=== PATIENT | female | born 1980 | race Caucasian/White ===

== ENCOUNTER 2019-06-06 09:03 | Emergency (ER) | payer OTHER ==
[2019-06-06 09:11] VITALS: TEMP 98.9
[2019-06-06] MEDS ORDERED: DIPH,PERTUS(ACELL)TETVAC-LF 0.5 ML VIAL IM ONE (09:24)
[2019-06-06] MEDS: LIDOCAINE 1% INJ 10MG/ML (20 ML MDV) SQ STA ×2 (09:30→09:35)
[2019-06-06] MEDS ORDERED: ceFAZolin 1,000 MG VIAL (IM USE) IM STA (09:30)
[2019-06-06] MEDS ORDERED: CEPHALEXIN 500MG STARTER PACK 4 CAP BTL PO STA (09:30)
--- NOTE | 2019-06-06 11:05 | ED ---
General Adult HPI - General Chief complaint: Wound/Laceration Stated complaint: Thumb Lac Time Seen by Provider: 06/06/19 09:22 Source: patient, RN notes reviewed, old records reviewed Mode of arrival: ambulatory Limitations: no limitations - History of Present Illness Initial comments: 38-year-old female patient presents to ED with avulsion laceration to pad of right thumb. Patient reports that she was vigorously using a broom to sweep when the plastic Of the broom came off causing patient to cut herself with the metal edge. Patient reports that these metal did not break. Patient suffered a avulsion laceration to her right thumb. Patient reports that skin entirely. Patient does not know date of last tetanus. Patient denies other complaints. Systemic: Pt denies fatigue, fever/chills, rash. Pt denies weakness, night sweats, weight loss. Neuro: Pt denies headache, visual disturbances, syncope or pre-syncope. HEENT: Pt denies ocular discharge or irritation, otalgia, rhinorrhea, pharyngitis or notable lymphadenopathy. Cardiopulmonary: Pt denies chest pain, SOB, heart palpitations, dyspnea on exertion. Abdominal/GI: Pt denies abdominal pain, n/v/d. : Pt denies dysuria, burning w/ urination, frequency/urgency. Denies new onset urinary or bowel incontinence. MSK: Pt denies myalgia, loss of strength or function in extremities. Neuro: Pt denies new onset weakness, paresthesias. - Related Data Previous Rx's Medication Instructions Recorded Cephalexin [Keflex] 500 mg PO Q6HR 3 Days #12 cap 06/06/19 Allergies Allergy/AdvReac Type Severity Reaction Status Date / Time No Known Allergies Allergy Verified 06/06/19 09:08 Review of Systems ROS Statement: Those systems with pertinent positive or pertinent negative responses have been documented in the HPI. ROS Other: All systems not noted in ROS Statement are negative. Past Medical History Past Medical History: Diabetes Mellitus History of Any Multi-Drug Resistant Organisms: None Reported Past Surgical History: Orthopedic Surgery Additional Past Surgical History / Comment(s): L leg Past Psychological History: No Psychological Hx Reported Smoking Status: Current every day smoker Past Alcohol Use History: Rare Past Drug Use History: Marijuana General Exam - General Exam Comments Initial Comments: Constitutional: NAD, AOX3, Pt has pleasant affect. HEENT: NC/AT, trachea midline, neck supple, no lymphadenopathy. Posterior pharynx non erythematous, without exudates. External ears appear normal, without discharge. Mucous membranes moist. Eyes PERRLA, EOM intact. There is no scleral icterus. No pallor noted. Cardiopulmonary: RRR, no murmurs, rubs or gallops, no JVD noted. Lungs CTAB in anterior and posterior fermin. No peripheral edema. Abdominal exam: Abdomen soft and non-distended. Abdomen non-tender to palpation in all 4 quadrants. Bowel sounds active in LLQ. No hepatosplenomegaly. No ecchymosis Neuro: CN II-XII grossly intact. No nuchal rigidity. No raccon eyes, no parks sign, no hemotympanum. No cervical spinal tenderness. MSK: 2 cm avulsion laceration to pad of right thumb. No foreign body, bony or ligamentous involvement. Full active range of motion of digit. Sensation intact, cable refill less than 2 seconds. Vigorusly irrigated with 1L NS. and bandaged. No posterior calf tenderness bilaterally, homans sign negative bilaterally. Posterior tibialis and radial pulse +2 bilaterally. Sensation intact in upper and lower extremities. Full active ROM in upper and lower extremities, 5/5 stregnth. Limitations: no limitations Course Vital Signs 06/06/19 06/06/19 09:08 11:18 Temperature 98.9 F Pulse Rate 122 H 86 Respiratory 18 16 Rate Blood Pressure 134/69 136/86 O2 Sat by Pulse 99 99 Oximetry Medical Decision Making - Medical Decision Making 38-year-old female patient presents to ED with avulsion laceration to pad of right thumb. Patient reports that she was vigorously using a broom to sweep when the plastic Of the broom came off causing patient to cut herself with the metal edge. Patient reports that these metal did not break. Patient suffered a avulsion laceration to her right thumb. Patient reports that skin entirely. Patient does not know date of last tetanus. Patient denies other complaints. Pt VSS, afebrile. PHysical exam displayed: 2 cm avulsion laceration to pad of right thumb. No foreign body, bony or ligamentous involvement. Full active range of motion of digit. Sensation intact, cable refill less than 2 seconds. Vigorusly irrigated with 1L NS. and bandaged. Patient administered 1 g Ancef in ED. Patient discharged with Keflex. Tetanus updated. Patient monitor for signs of infection, return precautions discussed. Patient to follow up with primary care provider in 1-2 days. Patient return if condition worsens. Case discussed with Dr. Araujo. Disposition Clinical Impression: Laceration Disposition: HOME SELF-CARE Condition: Stable Instructions (If sedation given, give patient instructions): Laceration (ED) Additional Instructions: Patient to adhere to previously discussed treatment plan and will take medication(s) as directed. Patient to follow up with PCP in 1-2 days. Patient to return to ED if symptoms do not improve. Please monitor for signs and symptoms of infection including: redness, warmth, drainage, discharge. Please return to ED if these signs or symptoms occur, new signs or symptoms develop or if condition worsens in anyway. Prescriptions: Cephalexin [Keflex] 500 mg PO Q6HR 3 Days #12 cap Is patient prescribed a controlled substance at d/c from ED?: No Referrals: None,Stated [Primary Care Provider] - 1-2 days
[2019-06-06 11:19] VITALS: BP 136/86; PULSE 86; RESP 16
[2019-06-06] MEDS ORDERED: GELATIN SPONGE,ABSORB (LARGE) 1 EACH SPONGE TOPICAL STA (12:56)
== END 2019-06-06 11:19 | disposition home or self-care (01) ==
LOC: EC 09:03
DX: S61.011A Laceration without foreign body of right thumb without damage to nail, initial encounter (principal); Z23 Encounter for immunization; F17.200 Nicotine dependence, unspecified, uncomplicated; W26.8XXA Contact with other sharp object(s), not elsewhere classified, initial encounter; Y92.009 Unspecified place in unspecified non-institutional (private) residence as the place of occurrence of the external cause
CPT/HCPCS: 90715; 99283; 90471; 96372; J0690

== ENCOUNTER 2020-11-24 19:16 | Emergency (ER) | payer OTHER ==
[2020-11-24 19:23] VITALS: RESP 20; TEMP 98
[2020-11-24] MEDS ORDERED: KETOROLAC 15 MG/ML 1 ML VIAL IVP STA (19:35)
[2020-11-24] MEDS ORDERED: SODIUM CHLORIDE 0.9% 500 ML 500 ML IV STA (19:35)
--- NOTE | 2020-11-24 19:37 | ED ---
General Adult HPI - General Chief complaint: Abdominal Pain Stated complaint: sharp in r side Time Seen by Provider: 11/24/20 19:28 Source: patient Mode of arrival: ambulatory Limitations: no limitations - History of Present Illness Initial comments: 40-year-old female patient presents to the emergency department today for evaluation of right upper back pain below her right shoulder blade. She states the pain isn't present for the last 2 weeks but has worsened over the last 3 days. States whenever she moves around it hurts worse. Denies any chest pain or shortness of breath. Denies abdominal pain, nausea, vomiting, constipation, diarrhea. She denies any tenderness over the area to palpation. Denies fever or chills. States she has had some mild cough and congestion. Denies any known injury. Patient denies any recent rash, diarrhea, constipation, back pain, numbness, tingling, dizziness, weakness, hematuria, dysuria, urinary urgency, ur inary frequency, headache, visual changes, or any other complaints. - Related Data Previous Rx's Medication Instructions Recorded Cyclobenzaprine [Flexeril] 10 mg PO TID #20 tab 11/24/20 Lidocaine 5% Patch [Lidoderm] 1 patch TOPICAL DAILY #30 patch 11/24/20 RX: Ibuprofen [Motrin] 600 mg PO Q8HR PRN #30 tab 11/24/20 Allergies Allergy/AdvReac Type Severity Reaction Status Date / Time No Known Allergies Allergy Verified 11/24/20 21:26 Review of Systems ROS Statement: Those systems with pertinent positive or pertinent negative responses have been documented in the HPI. ROS Other: All systems not noted in ROS Statement are negative. Past Medical History Past Medical History: Diabetes Mellitus History of Any Multi-Drug Resistant Organisms: None Reported Past Surgical History: Orthopedic Surgery Additional Past Surgical History / Comment(s): L leg Past Psychological History: No Psychological Hx Reported Smoking Status: Current every day smoker Past Alcohol Use History: Rare Past Drug Use History: Marijuana General Exam Limitations: no limitations General appearance: alert, in no apparent distress, other (This is a well- developed, well-nourished adult female patient in no acute distress. Vital signs upon presentation are temperature 98.0F, pulse 87, respirations 20, blood pressure 135/76, pulse ox 99% on room air.) Eye exam: Present: normal appearance, PERRL, EOMI. Absent: scleral icterus, conjunctival injection, periorbital swelling ENT exam: Present: normal exam, normal oropharynx, mucous membranes moist Respiratory exam: Present: normal lung sounds bilaterally. Absent: respiratory distress, wheezes, rales, rhonchi, stridor Cardiovascular Exam: Present: regular rate, normal rhythm, normal heart sounds. Absent: systolic murmur, diastolic murmur, rubs, gallop, clicks GI/Abdominal exam: Present: soft, normal bowel sounds. Absent: distended, tenderness, guarding, rebound, rigid Back exam: Present: normal inspection. Absent: tenderness, CVA tenderness (R), CVA tenderness (L), paraspinal tenderness, vertebral tenderness Neurological exam: Present: alert, oriented X3, CN II-XII intact Psychiatric exam: Present: normal affect, normal mood Skin exam: Present: warm, dry, intact, normal color. Absent: rash Course Vital Signs 11/24/20 11/24/20 19:20 21:50 Temperature 98.0 F Pulse Rate 87 70 Respiratory 20 20 Rate Blood Pressure 135/76 134/86 O2 Sat by Pulse 99 98 Oximetry Medical Decision Making - Medical Decision Making 40-year-old female patient percents to the emergency department today for evaluation of pain beneath the right shoulder blade. Physical examination revealed no tenderness or skin changes. Lungs are clear to auscultation. Abdomen soft and nontender. Labs reviewed and are unremarkable. D-dimer negative. Chest x-ray was negative. Urinalysis negative. She is afebrile, vital signs. Given increased pain with movement it is likely this could be musculoskeletal in nature possibly spasm. We will discharge him with Lidoderm patch, muscle relaxer, anti-inflammatory. She is instructed to follow-up with her primary care physician for recheck in 1-2 days. Return parameters were discussed in detail. She verbalizes understanding and agrees with this plan. - Lab Data Result diagrams: 11/24/20 19:38 11/24/20 19:38 Lab Results 11/24/20 11/24/20 11/24/20 Range/Units 19:38 19:38 19:38 WBC 7.1 (3.8-10.6) k/uL RBC 5.06 (3.80-5.40) m/uL Hgb 15.9 (11.4-16.0) gm/dL Hct 46.5 H (34.0-46.0) % MCV 91.9 (80.0-100.0) fL MCH 31.4 (25.0-35.0) pg MCHC 34.2 (31.0-37.0) g/dL RDW 12.5 (11.5-15.5) % Plt Count 170 (150-450) k/uL MPV 8.0 Neutrophils % 64 % Lymphocytes % 28 % Monocytes % 4 % Eosinophils % 2 % Basophils % 1 % Neutrophils # 4.5 (1.3-7.7) k/uL Lymphocytes # 2.0 (1.0-4.8) k/uL Monocytes # 0.3 (0-1.0) k/uL Eosinophils # 0.2 (0-0.7) k/uL Basophils # 0.1 (0-0.2) k/uL D-Dimer 0.38 (<0.60) mg/L FEU Sodium (137-145) mmol/L Potassium (3.5-5.1) mmol/L Chloride (98-107) mmol/L Carbon Dioxide (22-30) mmol/L Anion Gap mmol/L BUN (7-17) mg/dL Creatinine (0.52-1.04) mg/dL Est GFR (CKD-EPI)AfAm (>60 ml/min/1.73 sqM) Est GFR (CKD-EPI)NonAf (>60 ml/min/1.73 sqM) Glucose (74-99) mg/dL Calcium (8.4-10.2) mg/dL Total Bilirubin (0.2-1.3) mg/dL AST (14-36) U/L ALT (4-34) U/L Alkaline Phosphatase (38-126) U/L Total Protein (6.3-8.2) g/dL Albumin (3.5-5.0) g/dL Lipase (23-300) U/L Urine Color Light Yellow Urine Appearance Clear (Clear) Urine pH 5.5 (5.0-8.0) Ur Specific [place] 1.032 (1.001-1.035) Urine Protein Negative (Negative) Urine Glucose (UA) 4+ H (Negative) Urine Ketones 1+ H (Negative) Urine Blood Moderate H (Negative) Urine Nitrite Negative (Negative) Urine Bilirubin Negative (Negative) Urine Urobilinogen <2.0 (<2.0) mg/dL Ur Leukocyte Esterase Negative (Negative) Urine RBC 1 (0-5) /hpf Urine WBC 1 (0-5) /hpf Ur Squamous Epith Cells 1 (0-4) /hpf Urine Mucus Rare H (None) /hpf Urine HCG, Qual (Not Detectd) 11/24/20 11/24/20 Range/Units 19:38 19:38 WBC (3.8-10.6) k/uL RBC (3.80-5.40) m/uL Hgb (11.4-16.0) gm/dL Hct (34.0-46.0) % MCV (80.0-100.0) fL MCH (25.0-35.0) pg MCHC (31.0-37.0) g/dL RDW (11.5-15.5) % Plt Count (150-450) k/uL MPV Neutrophils % % Lymphocytes % % Monocytes % % Eosinophils % % Basophils % % Neutrophils # (1.3-7.7) k/uL Lymphocytes # (1.0-4.8) k/uL Monocytes # (0-1.0) k/uL Eosinophils # (0-0.7) k/uL Basophils # (0-0.2) k/uL D-Dimer (<0.60) mg/L FEU Sodium 136 L (137-145) mmol/L Potassium 4.7 (3.5-5.1) mmol/L Chloride 103 (98-107) mmol/L Carbon Dioxide 25 (22-30) mmol/L Anion Gap 8 mmol/L BUN 15 (7-17) mg/dL Creatinine 0.54 (0.52-1.04) mg/dL Est GFR (CKD-EPI)AfAm >90 (>60 ml/min/1.73 sqM) Est GFR (CKD-EPI)NonAf >90 (>60 ml/min/1.73 sqM) Glucose 348 H (74-99) mg/dL Calcium 9.4 (8.4-10.2) mg/dL Total Bilirubin 0.5 (0.2-1.3) mg/dL AST 24 (14-36) U/L ALT 24 (4-34) U/L Alkaline Phosphatase 133 H (38-126) U/L Total Protein 7.7 (6.3-8.2) g/dL Albumin 4.4 (3.5-5.0) g/dL Lipase 111 (23-300) U/L Urine Color Urine Appearance (Clear) Urine pH (5.0-8.0) Ur Specific [place] (1.001-1.035) Urine Protein (Negative) Urine Glucose (UA) (Negative) Urine Ketones (Negative) Urine Blood (Negative) Urine Nitrite (Negative) Urine Bilirubin (Negative) Urine Urobilinogen (<2.0) mg/dL Ur Leukocyte Esterase (Negative) Urine RBC (0-5) /hpf Urine WBC (0-5) /hpf Ur Squamous Epith Cells (0-4) /hpf Urine Mucus (None) /hpf Urine HCG, Qual Not Detected (Not Detectd) - Radiology Data Radiology results: report reviewed, image reviewed Two-view x-ray of the chest is obtained. Report was reviewed in its entirety. Impression by Dr. Dai Shirley shows no definite acute radiographic process. Disposition Clinical Impression: Back pain Disposition: HOME SELF-CARE Condition: Good Instructions (If sedation given, give patient instructions): Muscle Strain (ED), Back Pain (ED) Additional Instructions: Medications as directed. Follow-up with the primary care physician for recheck in 1-2 days. Return to the emergency department for any new, worsening, or concerning symptoms Prescriptions: Cyclobenzaprine [Flexeril] 10 mg PO TID #20 tab Lidocaine 5% Patch [Lidoderm] 1 patch TOPICAL DAILY #30 patch RX: Ibuprofen [Motrin] 600 mg PO Q8HR PRN #30 tab PRN Reason: Pain Is patient prescribed a controlled substance at d/c from ED?: No Referrals: None,Stated [Primary Care Provider] - 1-2 days Time of Disposition: 21:23
[2020-11-24 20:17] LABS: Basophils # (A) 0.1 k/uL (0-0.2); Basophils % (A) 1 %; Eosinophils # (A) 0.2 k/uL (0-0.7); Eosinophils % (A) 2 %; HCT 46.5 % (34.0-46.0); HGB 15.9 gm/dL (11.4-16.0); Lymphocytes % (A) 28 %; MCH 31.4 pg (25.0-35.0); MCHC 34.2 g/dL (31.0-37.0); MCV 91.9 fL (80.0-100.0); Monocytes # (A) 0.3 k/uL (0-1.0); Monocytes % (A) 4 %; Neutrophils # (A) 4.5 k/uL (1.3-7.7); Neutrophils % (A) 64 %; Platelet Count 170 k/uL (150-450); RBC 5.06 m/uL (3.80-5.40); RDW 12.5 % (11.5-15.5); WBC 7.1 k/uL (3.8-10.6)
[2020-11-24 20:23] LABS: Appearance,Urine Clear (Clear); Bilirubin,Urine Negative (Negative); Blood,Urine Moderate (Negative); Color,Urine Light Yellow; Glucose,Urine (UA) 4+ (Negative); Ketones,Urine 1+ (Negative); Leukocyte Esterase,Urine Negative (Negative); Mucus,Urine Rare /hpf; Nitrite,Urine Negative (Negative); PH, Urine 5.5 (5.0-8.0); Protein,Urine Negative (Negative); RBC,Urine 1 /hpf (0-5); Specific Gravity,Urine 1.032 (1.001-1.035); Squamous Epithelial Cell,Urine 1 /hpf (0-4); Urobilinogen,Urine <2.0 mg/dL (<2.0); WBC,Urine 1 /hpf (0-5)
[2020-11-24 20:26] LABS: ALT 24 U/L (4-34); AST 24 U/L (14-36); African American GFR (CKD) >90 (>60 ml/min/1.73 sqM); Albumin 4.4 g/dL (3.5-5.0); Alkaline Phosphatase 133 U/L (38-126); Anion Gap 8 mmol/L; Blood Urea Nitrogen 15 mg/dL (7-17); Calcium 9.4 mg/dL (8.4-10.2); Carbon Dioxide 25 mmol/L (22-30); Chloride 103 mmol/L (98-107); Glucose 348 mg/dL (74-99); Lipase 111 U/L (23-300); Non-African American GFR(CKD) >90 (>60 ml/min/1.73 sqM); Potassium 4.7 mmol/L (3.5-5.1); Sodium 136 mmol/L (137-145); Total Bilirubin 0.5 mg/dL (0.2-1.3); Total Protein 7.7 g/dL (6.3-8.2)
--- NOTE | 2020-11-24 20:45 | XR ---
EXAMINATION: XR chest 2V DATE AND TIME: 11/24/2020 8:10 PM CLINICAL INDICATION: PHH; abdominal pain TECHNIQUE: Departmental protocol COMPARISON: None FINDINGS: Overlying soft tissues are prominent. The lungs are clear. The pleural spaces are negative. The cardiac silhouette is not enlarged. The remainder of the mediastinal silhouette is unremarkable. The skeletal structures and soft tissues are negative for acute findings. IMPRESSION: No definite acute radiographic process.
[2020-11-24 21:53] VITALS: BP 134/86; PULSE 70
== END 2020-11-24 21:53 | disposition home or self-care (01) ==
LOC: EC 19:16
DX: M54.6 Pain in thoracic spine (principal); F17.200 Nicotine dependence, unspecified, uncomplicated
CPT/HCPCS: 36415; 85379; 80053; 83690; 85025; 81001; 81025; 71046; 99284; 96374; J1885

== ENCOUNTER 2022-05-11 09:33 | Emergency (ER) | payer OTHER ==
[2022-05-11 09:39] VITALS: BP 120/74; PULSE 70; RESP 18; TEMP 98.1
--- NOTE | 2022-05-11 09:50 | ED ---
Skin/Abscess/FB HPI - General Chief complaint: Skin/Abscess/Foreign Body Stated complaint: bump on head Time Seen by Provider: 05/11/22 09:41 Source: patient, RN notes reviewed Mode of arrival: ambulatory Limitations: no limitations - History of Present Illness Initial comments: 41-year-old female presents emergency Department chief complaint of lump on her scalp. Patient states started 2 days ago states is painful, increasing in size there is small amount of drainage noted. Patient is concerned that she has spiders in her scalp. denies any fevers or chills no neck pain or neck stiffness patient has no history of skin infections. - Related Data Previous Rx's Medication Instructions Recorded Cyclobenzaprine [Flexeril] 10 mg PO TID #20 tab 11/24/20 Ibuprofen [Motrin] 600 mg PO Q8HR PRN #30 tab 11/24/20 Lidocaine 5% Patch [Lidoderm] 1 patch TOPICAL DAILY #30 patch 11/24/20 Cephalexin [Keflex] 500 mg PO Q6HR #40 cap 05/11/22 Sulfamethox-Tmp 800-160Mg [Bactrim 1 each PO Q12HR #20 tab 05/11/22 Ds] Allergies Allergy/AdvReac Type Severity Reaction Status Date / Time No Known Allergies Allergy Verified 05/11/22 09:37 Review of Systems ROS Statement: Those systems with pertinent positive or pertinent negative responses have been documented in the HPI. ROS Other: All systems not noted in ROS Statement are negative. Past Medical History Past Medical History: Diabetes Mellitus History of Any Multi-Drug Resistant Organisms: None Reported Past Surgical History: Orthopedic Surgery Additional Past Surgical History / Comment(s): L leg Past Psychological History: No Psychological Hx Reported Smoking Status: Current every day smoker Past Alcohol Use History: Rare Past Drug Use History: Marijuana General Exam Limitations: no limitations General appearance: alert, in no apparent distress Head exam: Present: atraumatic, normocephalic. Absent: normal inspection (There is a fluctuant area right occipital with some drainage, yellow crusting noted surrounding erythema) Eye exam: Present: normal appearance, PERRL, EOMI. Absent: scleral icterus, conjunctival injection, periorbital swelling ENT exam: Present: normal exam, mucous membranes moist Neck exam: Present: normal inspection, full ROM. Absent: tenderness, meningismus, lymphadenopathy Respiratory exam: Present: normal lung sounds bilaterally. Absent: respiratory distress, wheezes, rales, rhonchi, stridor Cardiovascular Exam: Present: regular rate, normal rhythm, normal heart sounds. Absent: systolic murmur, diastolic murmur, rubs, gallop, clicks Course Vital Signs 05/11/22 09:37 Temperature 98.1 F Pulse Rate 70 Respiratory 18 Rate Blood Pressure 120/74 O2 Sat by Pulse 100 Oximetry Medical Decision Making - Medical Decision Making Patient does have what appears to be infected sebaceous cyst patient does have some drainage out of the site. Patient was placed on oral antibiotics warm compresses and follow-up with PCP. Disposition Clinical Impression: Infected sebaceous cyst of skin Disposition: HOME SELF-CARE Condition: Stable Instructions (If sedation given, give patient instructions): Abscess (ED) Additional Instructions: Please return to the Emergency Department if symptoms worsen or any other concerns. Prescriptions: Sulfamethox-Tmp 800-160Mg [Bactrim Ds] 1 each PO Q12HR #20 tab Cephalexin [Keflex] 500 mg PO Q6HR #40 cap Is patient prescribed a controlled substance at d/c from ED?: No Referrals: None,Stated [Primary Care Provider] - 1-2 days Time of Disposition: 09:50
== END 2022-05-11 10:00 | disposition home or self-care (01) ==
LOC: EC 09:33
DX: L72.3 Sebaceous cyst (principal); F17.200 Nicotine dependence, unspecified, uncomplicated; E11.9 Type 2 diabetes mellitus without complications
CPT/HCPCS: 99282